=== PATIENT | male | born 1995 | race African-American/Black ===

== ENCOUNTER 2017-08-21 17:43 | Emergency (ER) | payer SELFPAY ==
[~2017-08-21] VITALS: Ht 180.3 cm; Wt 68.0 kg
[2017-08-21] MEDS ORDERED: LIDOCAINE HCL 1% 20ML VIAL (Pyxis) INJ MC ONE (23:30)
[2017-08-21] MEDS ORDERED: HYDROCODONE/ACETAMINOPHEN 5/325MG TABLET PO ONE (23:30)
[2017-08-21] MEDS ORDERED: BACITRACIN ZINC OINT UDPKT TOP ONE (23:30)
[2017-08-22 00:05] VITALS: BP 129/99
== END 2017-08-22 01:50 | disposition home or self-care (01) ==
LOC: ER 17:43
DX: S61.412A Laceration without foreign body of left hand, initial encounter (principal); F12.10 Cannabis abuse, uncomplicated; W26.0XXA Contact with knife, initial encounter; Y93.89 Activity, other specified; Y92.89 Other specified places as the place of occurrence of the external cause; Y99.8 Other external cause status
CPT/HCPCS: 12002; 99283; J3490

== ENCOUNTER 2017-08-25 09:33 | Emergency (ER) | payer SELFPAY ==
[~2017-08-25] VITALS: Ht 180.3 cm; Wt 70.0 kg
[2017-08-25 09:57] VITALS: BP 133/91
== END 2017-08-25 15:44 | disposition left against medical advice (07) ==
LOC: ER 09:33
DX: Z48.00 Encounter for change or removal of nonsurgical wound dressing (principal); Z53.21 Procedure and treatment not carried out due to patient leaving prior to being seen by health care provider

== ENCOUNTER 2017-09-05 12:41 | Emergency (ER) | payer SELFPAY ==
[~2017-09-05] VITALS: Ht 180.3 cm; Wt 73.0 kg
[2017-09-05 13:24] VITALS: BP 133/85
== END 2017-09-05 14:48 | disposition home or self-care (01) ==
LOC: ER 12:58
DX: S61.411D Laceration without foreign body of right hand, subsequent encounter (principal); F12.10 Cannabis abuse, uncomplicated; W26.0XXD Contact with knife, subsequent encounter
CPT/HCPCS: 99281